=== PATIENT | female | born 1985 | race Caucasian/White ===

== ENCOUNTER 2016-11-29 21:02 | Emergency (ER) | payer MEDICAID ==
[2016-11-30 01:42] VITALS: BP 109/74
== END 2016-11-30 01:42 | disposition home or self-care (01) ==
LOC: ED 21:02
DX: N39.0 Urinary tract infection, site not specified (principal)
CPT/HCPCS: J1885; J7030

== ENCOUNTER 2017-03-12 17:54 | Emergency (ER) | payer MEDICAID ==
[2017-03-12 18:27] VITALS: BP 142/104
== END 2017-03-12 21:46 | disposition home or self-care (01) ==
LOC: ED 17:54
DX: M25.462 Effusion, left knee (principal); M25.562 Pain in left knee
CPT/HCPCS: J1885